=== PATIENT | male | born 1995 | race Caucasian/White ===

== ENCOUNTER 2016-05-22 22:25 | Emergency (ER) | payer OTHER ==
[~2016-05-22] VITALS: Ht 188 cm; Wt 86.2 kg
--- NOTE | 2016-05-22 22:38 | ED UPPER/LOWER EXTREMITY COMPL ---
History of Present Illness General Chief Complaint: Hand or Wrist Injury Stated Complaint: LEFT WRIST INJURY S/P SNOWBOARDING ACCIDENT Source: patient Exam Limitations: no limitations Vital Signs & Intake/Output Vital Signs & Intake/Output Vital Signs Date Time Temp Pulse Resp B/P Pulse O2 O2 Flow FiO2 Ox Delivery Rate 05/22 2356 98.4 96 16 120/72 97 Room Air 05/22 2232 98.6 96 16 121/70 99 Room Air ED Intake and Output 05/23 0000 05/22 1200 Intake Total 0 Output Total Balance 0 Intake, Oral 0 Patient 190 lb Weight Allergies Coded Allergies: No Known Allergies (05/22/16) Triage Note: RECEIVED 20 YO MALE FELL ON LEFT WRIST SNOWBOARDING ON 04/22/16. PT REPORTS PERSISTENT PAIN AND UNABLE TO FLEX LEFT WRIST Triage Nurses Notes Reviewed? yes Onset: Abrupt Duration: week(s):, waxing and waning Timing: recent history Severity: moderate Pain/Injury Location: Left: Wrist. Method of Injury: fall Modifying Factors: Worsens With: movement. Associated Symptoms: stiffness HPI: 20 yo gentleman presents with left wrist pain x 1 month after falling on it while snowboarding. He notes that it hurts when he moves his wrist. He is otherwise well. Past History Travel History Traveled to [place] past 21 day No Medical History Any Pertinent Medical History? see below for history Neurological: NONE EENT: NONE Cardiovascular: NONE Respiratory: NONE Gastrointestinal: NONE Hepatic: NONE Renal: NONE Musculoskeletal: NONE Psychiatric: NONE Endocrine: NONE Blood Disorders: NONE Cancer(s): NONE Surgical History Surgical History: none Psychosocial History What is your primary language Italian Tobacco Use: Never used Family History Hx Contributory? No Review of Systems Review of Systems Constitutional: Reports: no symptoms. EENTM: Reports: no symptoms. Respiratory: Reports: no symptoms. Cardiovascular: Reports: no symptoms. Gastrointestinal/Abdominal: Reports: no symptoms. Genitourinary: Reports: no symptoms. Musculoskeletal: Reports: no symptoms. Skin: Reports: no symptoms. Neurological/Psychological: Reports: no symptoms. Hematologic/Endocrine: Reports: no symptoms. Immunological: Reports: no symptoms. All Other Systems: Reviewed and Negative Physical Exam Physical Exam General Appearance: well developed/nourished, mild distress Head: atraumatic Eyes: Bilateral: normal appearance. Ears, Nose, Throat: normal ENT inspection Neck: normal inspection, supple Cardiovascular/Respiratory: regular rate/rhythm Back: normal inspection Hand Left: diffuse tenderness around left wrist. decreased ROM. no focal deformity or bony tenderness. Skin: intact, normal color, warm/dry Lymphatic: no anterior cervical hunter Progress Differential Diagnosis: contusion, fracture, sprain Plan of Care: Orders Procedure Date/time Status XRY-WRIST COMPLETE-LEFT 05/22 2230 Active Diagnostic Imaging: Viewed by Me: Radiology Read. Discussed w/RAD: Radiology Read. Radiology Impression: left wrist ... scaphoid chip fx... full report below. Comments: PATIENT: ERLIN NEWBY PRESENT AGE: 20 PATIENT ACCOUNT NO: [id number] : 96 LOCATION: [facility] ORDERING PHYSICIAN: KASSIE RICE MD SERVICE DATE: 05/22/16 EXAM TYPE: RAD - XRY-WRIST COMPLETE-LEFT EXAMINATION: XR WRIST, LEFT CLINICAL INFORMATION: Left wrist pain following fall. COMPARISON: None. TECHNIQUE: AP, lateral, oblique and navicular views of the left wrist. FINDINGS: Multiple views of the left wrist demonstrate an acute minimally displaced fracture of the left scaphoid. Carpal alignment appears grossly maintained. The first and second carpal rows are intact. IMPRESSION: Acute minimally displaced fracture of the left scaphoid bone. Carpal alignment appears grossly intact. DICTATED BY: ELLA CHASE MD DATE/TIME DICTATED:05/22/162314 FAMILY HEALTH NURSE PRACTITIONER:FREDI DATE/TIME TRANSCRIBED:05/22/162314 CONFIDENTIAL, DO NOT COPY WITHOUT APPROPRIATE AUTHORIZATION. <Electronically signed in Other Vendor System> SIGNED BY: ELLA CHASE MD 05/22/162319 Departure Departure Disposition: HOME OR SELF CARE Condition: Stable Clinical Impression Primary Impression: Left wrist pain Secondary Impressions: Scaphoid fracture, wrist, closed Departure Forms: Customer Survey General Discharge Information Procedures Splinting Location: LEFT WRIST Manual Alignment Performed: No Hand-Made Type: orthoglass Splint: wrist Splint Applied By: splint applied by me Pre-Proc Neuro Vasc Exam: normal Post-Proc Neuro Vasc Exam: normal Progress: PT WILL FOLLOW UP WITH ORTHO.
--- NOTE | 2016-05-22 23:20 | RADIOLOGY REPORT ---
EXAMINATION: XR WRIST, LEFT CLINICAL INFORMATION: Left wrist pain following fall. COMPARISON: None. TECHNIQUE: AP, lateral, oblique and navicular views of the left wrist. FINDINGS: Multiple views of the left wrist demonstrate an acute minimally displaced fracture of the left scaphoid. Carpal alignment appears grossly maintained. The first and second carpal rows are intact. IMPRESSION: Acute minimally displaced fracture of the left scaphoid bone. Carpal alignment appears grossly intact.
[2016-05-22 23:56] VITALS: BP 120/72
== END 2016-05-22 23:57 ==
LOC: ERH 22:25
DX: S62.002A Unspecified fracture of navicular [scaphoid] bone of left wrist, initial encounter for closed fracture (principal); V00.311A Fall from snowboard, initial encounter; Y93.23 Activity, snow (alpine) (downhill) skiing, snowboarding, sledding, tobogganing and snow tubing
CPT/HCPCS: 73110-LT